=== PATIENT | female | born 1990 | race Caucasian/White ===

== ENCOUNTER 2023-07-12 15:47 | Inpatient (IN) | payer OTHER, SELFPAY ==
[2023-07-12] VITALS (14 sets, daily range): BP systolic 80–126; BP diastolic 36–77; PULSE 68–102; BMI 31.5
[2023-07-12 16:44] LABS: Basophils Percent Auto 0.2 % (0.2-1.2); Eosinophils Absolute Auto 0.1 K/mm3 (0-0.3); Eosinophils Percent Auto 0.5 % (0-4.4); Hemoglobin 12.7 g/dL (12.0-15.0); Immature Granulocyte Absolute 0.13 K/mm3 (0.00-0.031); Immature Granulocyte Percent A 0.8 % (0-0.5); Lymphocytes Absolute Auto 2.27 K/mm3 (0.9-3.2); Mean Corpuscular HGB Conc 34.3 g/dl (32-36); Mean Corpuscular Hemoglobin 30.9 pg (26-34); Mean Platelet Volume 11.1 fl (7.4-10.4); Monocytes Absolute Auto 0.8 K/mm3 (0.1-0.6); Monocytes Percent Auto 4.6 % (2.6-8.5); Neutrophils Percent Auto 79.9 % (45.5-73.1); Platelet Count Result 176 k/mm3 (150-375); Red Blood Count 4.11 M/mm3 (4.2-5.4); Red Cell Distribution Width 12.6 % (11.5-14.5); White Blood Count 16.2 K/mm3 (4.5-10.0)
--- NOTE | 2023-07-12 16:47 | LDADM ---
This patient, Dasia Gifford, was admitted to Labor/Delivery/Recovery 106 on 07/12/23 at 15:47. Plans for labor, pain management and were discussed with patient. Patient/family oriented to hospital policies and general routines including ID bracelet, bed and alarms, visiting hours, pain management, procedures, bathroom and other care routines, personal items, smoking policy, room service/diet and guest tray routines, infant security routines, and visiting hours. Patient/Family are encouraged to report perceived risks to care and to ask questions if they do not understand what they are told or what they should do. See OBIX for further documentation.
[2023-07-12] MEDS: miSOPROStol 25 MCG TABLET 50 MCG BY MOUTH (17:55)
[2023-07-12 18:17] LABS: Amphetamine Screen Urine Negative (Negative); Barbiturate Screen Urine Negative (Negative); Benzodiazepines Screen Urine Negative (Negative); Cannabinoid Screen Urine Negative (Negative); Cocaine Screen Urine Negative (Negative); Methadone Screen Urine Negative (Negative); Opiate Screen Urine Negative (Negative); Phencyclidine Screen Urine Negative (Negative)
--- NOTE | 2023-07-12 20:10 | WPDANESEPP ---
Anes - Eval Pre Procedure Procedure: labor epidural Date/Time: 07/12/23 20:10 Pre Op Diagnosis: IOL Patient Data Age: 33 Gender: F Height: 1.65 m Weight: 86 kg Last Vital Signs Pulse 87 07/12/23 20:01 BP 110/61 07/12/23 20:01 O2 Del Method Room Air 07/12/23 16:45 Allergies Allergy/AdvReac Type Severity Reaction Status Date / Time Penicillins AdvReac Nausea and Verified 06/29/23 14:37 Vomiting pseudoephedrine AdvReac Nausea and Verified 06/29/23 14:37 [From [facility]] Vomiting Home Medications Medication Instructions Recorded Confirmed Type prenat.vits,celso,tol-ynfc-ebjxr 1 tablet 06/29/23 History sertraline 100 mg tablet (Zoloft) 100 mg PO DAILY 06/29/23 06/29/23 History Laboratory Tests 07/12/23 07/12/23 16:12 17:47 WBC 16.2 H K/mm3 (4.5-10.0) RBC 4.11 L M/mm3 (4.2-5.4) Hgb 12.7 g/dL (12.0-15.0) Hct 37.0 % (37.0-47.0) MCV 90.0 fl (80-100) MCH 30.9 pg (26-34) MCHC 34.3 g/dl (32-36) RDW 12.6 % (11.5-14.5) Plt Count 176 k/mm3 (150-375) MPV 11.1 H fl (7.4-10.4) Immature Gran % (Auto) 0.8 H % (0-0.5) Neut % (Auto) 79.9 H % (45.5-73.1) Lymph % (Auto) 14.0 L % (18.3-44.2) [place] % (Auto) 4.6 % (2.6-8.5) Eos % (Auto) 0.5 % (0-4.4) Baso % (Auto) 0.2 % (0.2-1.2) Lymph # (Auto) 2.27 K/mm3 (0.9-3.2) [place] # (Auto) 0.8 H K/mm3 (0.1-0.6) Eos # (Auto) 0.1 K/mm3 (0-0.3) Baso # (Auto) 0.0 K/mm3 (0.0-0.1) Abs Immat Gran (auto) 0.13 H K/mm3 (0.00-0.031) Absolute Neuts (auto) 13.0 H K/mm3 (1.3-6.7) Absolute Nucleated RBC 0.0 K/mm3 (0.0-0.012) Nucleated RBC % 0.0 % (0.0-0.2) Urine Opiates Screen Negative (Negative) Urine Methadone Screen Negative (Negative) Ur Barbiturates Screen Negative (Negative) Ur Phencyclidine Scrn Negative (Negative) Ur Amphetamine Screen Negative (Negative) U Benzodiazepines Scrn Negative (Negative) Urine Cocaine Screen Negative (Negative) U Cannabinoids Screen Negative (Negative) RPR Pending Blood Type A Positive Antibody Screen Negative Patient hx anesthesia problems: none Family hx anesthesia problems: none Results Review: All pre-operative results and documents have been reviewed as part of the pre-operative evaluation. [facility] Past Medical History Medical History Obese Family History Family History Other Patient denies significant medical history Social History Social History Smoking status: Former smoker Tobacco type: cigarettes Substance use: never Lack of Transportation: No Lack of Food: Never True Current Housing: I Have Housing Concerned About Future Housing: No Difficulty Paying Gas/Electric Bills: No Difficulty Paying for Meds: No Currently Unemployed: No Education: High School Diploma/GED Difficulty w/ Childcare or Family Care: No Spiritual care concerns: No Exam Day of Procedure 07/12/23 20:10 Patient weight: obese Heart: regular rate and rhythm Lungs: normal air movement Airway: Mallampati scale Neurological: alert and oriented
[2023-07-12] MEDS: miSOPROStol 25 MCG TABLET 50 MCG PO (22:20)
[2023-07-13] VITALS (161 sets, daily range): BP systolic 74–136; BP diastolic 36–90; PULSE 57–184; RESP 16–19; TEMP 36.6–37.5; O2SAT 88–100
[2023-07-13] MEDS: LACTATED RINGERS 500 ML 999 ML IV CONT (03:25)
[2023-07-13] MEDS: LACTATED RINGERS 1,000 ML 125 ML IV CONT (07:00)
--- NOTE | 2023-07-13 07:48 | WPDOBADMIT ---
Obstetrics - Admit Note Admission Note: record reviewed. No pertinent additions to the history and/or any subsequent changes in the physical findings that are not consistent with the expected course of the were found. Additions to the history and/or subsequent changes in the physical findings follow. IOL for IUGR. 39 weeks. SVE /-2. SROM this am. IUPC placed without difficulty. Anticipate vaginal delivery.
[2023-07-13] MEDS: ONDANSETRON INJ 4 MG/2 ML VIAL IV PUSH (07:58)
[2023-07-13] MEDS: OXYTOCIN 30 UNITS/NS 500 ML 30 UNITS/500 ML BAG IV CONT (08:02)
[2023-07-13 14:39] LABS: Rapid Plasma Reagin Non-Reactive (NonReactive)
[2023-07-13] MEDS: miSOPROStol 200 MCG TABLET 1000 MCG (14:44)
[2023-07-13] MEDS: METHYLERGONOVINE MALEATE 0.2 MG/ML VIAL IM (14:57)
--- NOTE | 2023-07-13 15:06 | P.PCNOB_ITS ---
OB - Vaginal Delivery Note Procedure Delivery date: 07/13/23 Events: Intrauterine Growth Restriction (IUGR) Induction method: Per Misoprostol Protocol and Per Pitocin Protocol Delivery monitor: External FHT and Internal FHT Route of delivery: Episiotomy description: None Laceration Description: Vaginal and Labial (right) Delivery repair: vicryl Specimen: Yes Quantitative Blood Loss (ml): 1,200 Anesthesia type: Epidural Disposition: Floor Complications: Other complications (baby delivered with large amount of blood, blood clots, and bloody fluid.) Narrative: fundus remained boggy after IV pitocin, cytotec and methergine, edu placed and now mother and baby stable [place] Baby Date of : 07/13/23 Time of : 14:35 Weeks of gestation at delivery: 39 Infant gender: Female presentation: vertex position: Left Occiput Anterior Placenta delivery description: Spontaneous Cord Vessel Description: 3 Vessels Narrative: Baby to warmer for evaluation
[2023-07-13] MEDS: ceFAZolin 2 GM/D5W 50 ML 2 GM/50 ML BAG IVPB (16:00)
[2023-07-13] MEDS: OXYTOCIN 30 UNITS/NS 500 ML 30 UNITS/500 ML BAG 125 UNITS IV CONT (16:00)
--- NOTE | 2023-07-13 17:50 | OBPPTRN ---
Patient transferred to post room # 285 via wheelchair accompanied by fob and in open crib. PT introductions made and plan of care discussed per post , pain management, breast feeding, daily care activities .PT and Support person both recipients of such instructions and no barriers to learning identified at this time. PT received such instructions per one to one discussion, mom baby care guide and demonstrations this shift. Oriented to unit, room, information board, rooming in, admission packet and security measures. Patient verbalizes understanding.
--- NOTE | 2023-07-13 18:00 | PC.NURSE ---
Mick Gutierrez CNMW here to deflate the Jacqueline balloon and discontinued the wall suction. PT instructed to call if feeling like she is bleeding heavily. Mick Gutierrez to return and remove Jacqueline. PT tolerated procedure well and verbalized understanding.
--- NOTE | 2023-07-13 19:02 | PC.NURSE ---
RN went to pt room at 1815 for introduction and to place u-bag on for drug screen. discussed plan of care with patient regarding CHAPARRO and what to expect during rest of evening. pt pleasant to talk with during this time. pt then asked for help infant as it was time for feeding. infant placed at breast and pt suddenly started becoming anxious regarding baby not latching correctly right away stating she did perfect downstairs you are just a stranger . Reassurance was provided to patient that this is a learning process and it can take a couple of times to get baby to appropriately latch as they are learning. pt became agitated after only 5 minutes of trying, breaks down and states she wants formula and just needs time alone with her baby . Discussion of what brand of formula pt wanted was had and pt states she wants similac. pt immediately follows with I just need time with my baby alone, I want to be alone, I want to go home. at this point, Loyd Gutierrez CNM came into room to evaluate the CHAPARRO, pt states to CNM I just need time alone with my baby I am trying to latch her and she did perfect downstairs and now my nipple is hurting and I just want to be alone. RN and CNM respected pt request and left bedside. SHELBIEM states pt has latanya scheduled to start and would like a care coordination consult placed.
--- NOTE | 2023-07-13 19:27 | PM.OBPNVD ---
OB - PN: Subj Subjective Date/time seen: 07/13/23 19:28 Interval history: at bs and deflated cervical cuff, minimal bleeding on pad, 30 minutes later removed CHAPARRO device without difficulty, bleeding minimal, fundus firm at umbilicus OB - PN: Obj Data Labs 07/12/23 16:12 Labs: Laboratory Results - last 24 hr 07/12/23 16:12 RPR Non-reactive OB - PN A/P Time Spent With Patient Time: Total time spent is greater than 50% in coordination of care (as documented) at patient's floor/unit and/or counseling patient:
[2023-07-13] MEDS: IBUPROFEN 600 MG TABLET PO (22:01)
[2023-07-14 05:05] VITALS: BP 96/58; PULSE 66; RESP 14; O2SAT 99
[2023-07-14 05:23] LABS: Hematocrit 30.8 % (37.0-47.0); Hemoglobin 10.2 g/dL (12.0-15.0)
[2023-07-14 07:50] VITALS: BP 110/59; PULSE 77; RESP 16; TEMP 36.6; O2SAT 94
--- NOTE | 2023-07-14 08:00 | PC.NURSE ---
PT introductions made and plan of care discussed per post , pain management, breast feeding, daily care activities. PT and fob both recipients of such instructions and no barriers to learning identified at this time. PT received such instructions per one to one discussion, mom baby care guide and demonstrations this shift. PT verbalized understanding of such care.
--- NOTE | 2023-07-14 08:03 | PM.OBPNVD ---
OB - PN: Subj Subjective Date/time seen: 07/14/23 08:03 Interval history: at bs and deflated cervical cuff, minimal bleeding on pad, 30 minutes later removed CHAPARRO device without difficulty, bleeding minimal, fundus firm at umbilicus Patient comments: no complaints, pain well controlled, incisional pain, tolerating diet and flatus present OB - PN: Obj Data Labs 07/14/23 04:55 Labs: Laboratory Results - last 24 hr 07/12/23 07/14/23 16:12 04:55 Hgb 10.2 L Hct 30.8 L RPR Non-reactive OB - PN A/P Plan day: 1 Plan: routine care Comments: No problems, routine care Time Spent With Patient Time: Total time spent is greater than 50% in coordination of care (as documented) at patient's floor/unit and/or counseling patient: Exam Const: General: comfortable, no acute distress and alert Resp: Effort & Inspection: normal respiratory effort Auscultation: no crackles, no rales and no rhonchi Cardio: Rate: regular rate Heart sounds: no click, no murmurs and no rubs GI: Inspection: non-distended GI Palp: No Tenderness to palpation present (GI) Auscultation: normal bowel sounds Other: Incision - CDI Extrem: General: normal to inspection, no pedal edema and no calf tenderness
--- NOTE | 2023-07-14 08:55 | WPDANLDPN2 ---
Anes-Prog Note L&D Date/Time: 07/14/23 08:55 Comfortable throughout: labor and delivery Neuraxial method: epidural Epidural/Spinal procedure site: clean & non-tender Neuro status: Neuro function grossly intact. Cardiovascular status: other (anemia, hypotensive) Respiratory status: normal Airway patency: baseline Mental status: baseline Post-Op hydration status: normal Vital Signs: Last Vital Signs Temp 36.9 C 07/13/23 18:00 Pulse 66 07/14/23 05:05 Resp 14 07/14/23 05:05 BP 96/58 L 07/14/23 05:05 Pulse Ox 99 07/14/23 05:05 O2 Del Method Room Air 07/12/23 16:45 Pain score (VAS): 3/10 I/O: Intake & Output 07/13/23 07/14/23 07/14/23 23:59 07:59 15:59 Intake Total 500 Output Total 500 Balance 0 Post-procedural complaints: pruritis mild, no treatment Patient feedback: Patient satisfied with anesthetic care.
[2023-07-14 10:00] VITALS: PULSE 83; RESP 16; O2SAT 98
[2023-07-14] MEDS: POLYSACCHARIDE IRON COMPLEX 150 MG CAPSULE PO ×2 (10:10→17:24)
[2023-07-14] MEDS: IBUPROFEN 600 MG TABLET PO ×2 (10:11→17:24)
[2023-07-14] MEDS: DOCUSATE SODIUM 100 MG CAPSULE PO ×2 (10:11→17:25)
[2023-07-14] MEDS: MULTIVIT/MIN/PREN/FOL AC/IRON TABLET 1 TAB PO (10:11)
[2023-07-14 12:09] VITALS: BP 96/60; PULSE 83; RESP 16; TEMP 36.6; O2SAT 98
[2023-07-14 19:42] VITALS: BP 102/57; PULSE 75; RESP 16; TEMP 36.1
[2023-07-14] MEDS: SERTRALINE HCL 50 MG TABLET PO (21:00)
[2023-07-15] MEDS: IBUPROFEN 600 MG TABLET PO (04:37)
--- NOTE | 2023-07-15 07:53 | PM.OBPNVD ---
OB - PN: Subj Subjective Date/time seen: 07/15/23 07:53 Interval history: PPD 2 Doing well Patient desires DC home OB - PN: Obj Data Labs 07/14/23 04:55 OB - PN A/P Plan day: 2 Plan: routine care and discharge home Time Spent With Patient Time: Total time spent is greater than 50% in coordination of care (as documented) at patient's floor/unit and/or counseling patient: Review of Systems Review of Systems: All systems reviewed & are unremarkable except as noted in HPI and below Exam Const: General: cooperative, healthy appearing and comfortable Resp: Effort & Inspection: normal respiratory effort Cardio: Rate: regular rate GI: Other: soft Neuro: General: patient oriented x3 Extrem: Right lower extremity: normal to inspection Left lower extremity: normal to inspection Psych: Appearance: grossly normal
--- NOTE | 2023-07-15 07:56 | P.DS_ITS ---
DS: Admitting Diagnosis Discharge Date 07/15/23 Admitting Diagnosis IOL IUGR OB - DS: Summary OB Procedures : None OB Procedures Intrapartum: Spontaneous Vag Delivery OB Procedures: : None Peripartum Data Laceration Description: Vaginal and Labial (right) Episiotomy description: None Time Spent with Patient Time attestation: Total time spent providing and/or coordinating discharge services: DS: Data Data Completed and Pending Pending studies at discharge: Pending at discharge 07/13/23 16:20 Surgical [PTH] Routine Discharge Plan Discharge Attending physician on discharge: Jack Canela Discharging Clinician: Zora Gutierrez Patient Disposition: Home, Self-Care Activity: pelvic rest Diet: regular Patient Instructions: Antibiotic Form Stand Alone Forms: General Discharge Information Follow-up/Referrals: Zora Gutierrez CNM [Certified Nurse [employer] Officer] - Discharge Medications: New ibuprofen 600 mg Tablet 600 mg PO Q6H PRN (Reason: Cramping) Qty: 30 0RF Continued sertraline [Zoloft] 100 mg Tablet 100 mg PO DAILY #2 Tablet 1 tablet Date of admission: 07/12/23 15:47 Primary Care Provider: PHYSICIAN,FILING AND POLISHING SUPERVISOR Admitting Provider: Jack Canela Attending physician on admission: Jack Canela Condition: Stable
--- NOTE | 2023-07-15 07:56 | PM.OBDSVD ---
DS: Admitting Diagnosis Discharge Date 07/18/23 Admitting Diagnosis IOL DS: Discharge Diagnosis Discharge Diagnosis (1) Vaginal delivery: Code(s): O80 - Encounter for full-term uncomplicated delivery Status: Acute OB - DS: Summary OB Procedures : None OB Procedures Intrapartum: Spontaneous Vag Delivery OB Procedures: : None Peripartum Data Laceration Description: Vaginal and Labial (right) Episiotomy description: None Time Spent with Patient Time attestation: Total time spent providing and/or coordinating discharge services: DS: Data Data Completed and Pending Pending studies at discharge: Pending at discharge 07/13/23 16:20 Surgical [PTH] Routine Discharge Plan Discharge Attending physician on discharge: Jack Canela Consulting providers: Zora Gutierrez; Nakia Francisco; Ignacio Saavedra Discharging Clinician: Zora Gutierrez Patient Disposition: Home, Self-Care Activity: pelvic rest Diet: regular Discharge Instructions: Education: Mom and Baby Guide Given to: Mother Follow-Up: Call your delivering provider's office for an appointment to be seen in: 6 Weeks Mom and baby should come to the [facility] for the follow-up appointment. Appointment Date/Time: July 16, 2023 at 8:00 am What to expect at your follow-up visit: Blood Pressure Check Call [phone] if you are unable to keep your appointment time. BREAST CARE: * Wear a snug supportive bra. * For engorgement discomfort: Breast Feeding: * Apply warm moist washcloths * Express milk as needed to relieve engorgement * Wear loose clothing Bottle Feeding: * May apply ice packs * For sore nipples: * Identify correct latch-on * Apply warm moist washcloths before and after nursing * Air dry nipples after nursing * May apply Lansinoh cream to nipples EPISIOTOMY/PERINEAL CARE: * Until bleeding stops, use your jamila bottle after urinating * Change your pad frequently throughout the day * You may take sitz baths several times a day (fill your bathtub with warm water and soak for 20 minutes.) Do NOT bathe in the water * No tub baths until seen by your physician - You may shower ACTIVITY: * Rest as much as possible. * Do not exercise or lift anything heavier than your baby (such as laundry or other children.) * Avoid stairs or driving as much as possible. * Do not put anything into the vagina. No douching, tampons, or sexual activity until seen by physician. NOTIFY PHYSICIAN IF YOU HAVE ANY QUESTIONS OR IF ANY OF THE FOLLOWING SYMPTOMS OCCUR: * If your episiotomy or incision becomes red, swollen, or more painful than what you have experienced in the hospital. * If your vaginal bleeding becomes foul smelling. * If your vaginal bleeding becomes more heavy than a period or if your bleeding changes from pink to bright red. However, you may pass an occasional walnut-sized clot once or twice for the first week . * If you experience a sharp, shooting pain in you calves. * If you discover a hard, reddened area on your breast or if you experience flu-like symptoms. DIET: * Eat regular, well-balanced meals. * Drink plenty of fluids daily. If , drink to thirst. Stand Alone Forms: General Discharge Information Follow-up/Referrals: Zora Gutierrez CNM [Certified Nurse Otorhinolaryngologist] - Discharge Medications: New ibuprofen 600 mg Tablet 600 mg PO Q6H PRN (Reason: Cramping) Qty: 30 0RF Continued sertraline [Zoloft] 100 mg Tablet 100 mg PO DAILY prenat.vits,celso,ihn-xkjh-geita Tablet 1 tablet Date of admission: 07/12/23 15:47 Primary Care Provider: PHYSICIAN,DOLLYMAN Admitting Provider: Jack Canela Attending physician on admission: Jack Canela Condition: Stable
[2023-07-15] MEDS: BENZOCAINE 20% AER SPR (*SP) 56 GM CAN 1 SPRAY TOPICAL (08:00)
[2023-07-15] MEDS: LANOLIN (LANSINOH) 7.5 GM CREAM 1 APPLIC TOPICAL (08:00)
[2023-07-15] MEDS: WITCH HAZEL 40 PADS 1 PAD TOPICAL (08:00)
[2023-07-15] MEDS: MULTIVIT/MIN/PREN/FOL AC/IRON TABLET 1 TAB PO (08:00)
[2023-07-15 08:11] VITALS: BP 109/52; PULSE 125; RESP 20; TEMP 36.3; O2SAT 98
--- NOTE | 2023-07-15 10:06 | PCCCNOTE ---
Care Coordination Consult: Met with pt. and KARO Rucker today. This is their first child. They live together at home in [place]. Pt. confirms she has all necessary supplies at home for baby including a car seat, crib, clothing, diapers, and bottles. Pt. reports she does also have a breast pump at home that was provided to her free from her [employer] insurance. Pt. reports she has come more to terms about the difficulty she and baby have had latching and breast feeding. Plan is for baby to supplement with formula and pt. will work on . resources provided pt. has informed for [facility] and is planning to contact the [place] office to apply. She also reports she has applied for EBT/SNAP benefits. Pt. reports that she is happy and things are okay, as long as the baby is eating regardless of breast fed or formula. Support provided. Pt. plans to follow up with Bracelet And Brooch Maker Tana Montanez in [place] ([phone]) Reports baby has first appointment tomorrow (Tuesday) at 9:00am. Chaim confirms he will transport to appointment. Pt. was started on Sertraline (Zoloft) during has medication at home with enough refills until follow up appointment with Zora Gutierrez at the end of this month. Pt. also has a referral in for counseling and case management at [facility] and has information to follow up for appointment at home. Pt. reported a distant history of substance use including ecstasy and marijuana both pt. and baby's urine is negative. Cord pending at this time. basket provided to pt. Pt. denies any other case management needs. Per RN pt. and baby likely to discharge today. Have everything they need in regards to resources and support. Discharge preference is home. CC will follow OP for results of cord testing.
--- NOTE | 2023-07-15 16:01 | PC.NURSE ---
[phone] Introductions were made, then consulted with patient to assess needs related to . Mother led the conversation with her?plans to feed?her infant and the?experience so far. Encouraged understanding of the benefits of skin to skin (demonstrating unwrapping and placing upright on her chest), stimulating with massage touch, changing positions to encourage wakefulness, how to watch for early feeding cues, responsive feeding, feeding on demand (aiming for 8-12 times in 24 hours, about every 2-3 hours), milk production, building/maintaining a milk supply, duration of feeding, signs of adequate intake/output and how to record on the feeding sheet. Mother works well with her with encouragement and education. Reviewed positioning and ear, shoulder, hip alignment, supporting the breast to facilitate a deep latch, asymmetrical latch (off-center), leading with the chin with a big, open, wide gape and body close to mother. Infant is sleepy at this time as has received bottles after mother breastfed. Father of the baby discussed the infant being in the nursery at night and he would like to give the baby the bottle occasionally. We discussed protecting her milk supply with frequently feedings. We reviewed pumping usage, cleaning, care when is bottle feeding. Reviewed comfort measures of healing with a warm, wet washcloth to rinse breast, then leave open to air-dry, good handwashing when or touching the breast/nipples to prevent infection. Mother voiced understanding of skin to skin, stimulating with massage touch, responsive feedings, talking to to encourage if it has been 2 -2.5 hours since the start of the last , and pumping her breast if the infant is receiving a bottle. Resources used for education were facilitated with the visual educational handouts, tool, mom and baby guide, OB office [place] and patient roxy Foster as a [facility] resource for community . Parents voiced understanding of information.
[2023-07-18 11:29] VITALS: BP 112/69; PULSE 72; RESP 18; TEMP 37.3; O2SAT 99
== END 2023-07-15 12:35 | disposition home or self-care (01) | DRG 560 ==
LOC: ANHLDR 15:54 → ANHOB2 07-13 17:52
PROVIDERS: Advanced Practice Midwife; Admitting Provider Obstetrics & Gynecology; Visit Provider Obstetrics & Gynecology
DX: O36.5930 Maternal care for other known or suspected poor fetal growth, third trimester, not applicable or unspecified (principal); Z37.0 Single live birth; Z3A.39 39 weeks gestation of pregnancy; O69.81X0 Labor and delivery complicated by cord around neck, without compression, not applicable or unspecified; O72.1 Other immediate postpartum hemorrhage; L29.9 Pruritus, unspecified; O99.73 Diseases of the skin and subcutaneous tissue complicating the puerperium; O70.0 First degree perineal laceration during delivery
CPT/HCPCS: 36415; 80307; 85014; 85018; 85025; 86592; 86850; 86900; 86901; 88307; A9270; J0690; J2210; J2405; J2590; J2795; J7120